=== PATIENT | male | born 2000 | race Caucasian/White ===

== ENCOUNTER → 2020-02-16 | Outpatient (CLI) | payer OTHER ==
--- NOTE | 2020-02-16 14:11 | Diagnostic Imaging Report ---
INDICATION: Lower leg pain. Time of exam 11:21 AM Multiple views bilateral tibia and fibula were obtained. Alignment at the knee and ankles appears to be normal bilaterally. Tibia and fibula are intact. No definite fracture or stress reaction is identified. Soft tissues are unremarkable. IMPRESSION: No acute abnormality is detected. If there is concern for tibial stress reaction, MRI of the lower extremities may be useful for further evaluation. Dictated by: Dictated on workstation # [id number]
== END ==
LOC: RAD FS 10:54
PROVIDERS: ATTEND Internal Medicine
DX: M79.662 Pain in left lower leg (principal); M79.661 Pain in right lower leg